=== PATIENT | female | born 1985 | race Asian ===

== ENCOUNTER 2023-05-27 13:05 | Outpatient (CLI) | payer OTHER, SELFPAY ==
--- NOTE | 2023-05-27 17:00 | W.PM.LAC.MC ---
Consult Note - Mom Date of Visit Date of visit: 05/27/23 method consultant: Ana Pineda Visit Code: Visit Patient's Information Phone number: [phone] : 1 Para: 1 Mother's Medical History: hypothyroidism Delivery Information Delivery type: Primary C/S; Labored Weeks Gestation: term Gestational Age: AGA Weight: 3.175 kg Baby's Information Baby's Age at Visit: 3 weeks Baby's Provider or Clinic: Dr. Engle Jaundice: No Reason for Consult Reason for Consult: pain with latching, concern for milk supply Past Experience Past Experience: No Current Frequency of Day Feedings: every 2 - 3 hours around the clock Both Breasts: No (mom hasn't been nursing this week) Pumping Pumping: Yes (with almost every feeding) Quantity Pumped: 1.5 - 2 oz total each time Supplementing EMB Supplement: Yes (baby is given 2.5 - 3 oz EBM/formula with every feeding) Formula Supplement: Yes Baby Elimination Number of Wet Diapers a Day: 6 - 8/24 hours Number of BM a Day: 2 - 3/day Breast/Nipple Condition Breast Information: WNL Onsite Pre-Feed weight: 4.062 kg Post-Feed weight: 4.088 kg Milk Transferred (mL): 26 Assessments/Interventions Assessments/Interventions: Met with mom and this now 3 week old- ex term AGA baby for consult. Mom received her care and delivered with Jenna Morrell in [place]. She denied any complications during (she does have hpothyroidism that is well controlled with medication). Labor complicated by FTP and she needed an unscheduled C/S. States she had a lot of trouble nursing in the hospital and over the past few weeks has developed more pain. This past week she's stopped nursing and concentrated on pumping b/c it didn't hurt as much. She's pumping almost every time baby eats and gets 1.5 - 2 oz total each time (she has a new Spectra and is using 28 mm flanges). Baby is taking 2.5 - 3 oz EBM/formula every 2 - 3 hours. Breasts WNL- symmetrical with rounded lower quadrants, intramammary distance < 1.5 inches. Nipples are everted and don't flatten or retract on compression. Although there are no milk blebs on the nipples currently, there are several small areas that are a little discolored and mom reports a hx of milk belbs that have healed. She also reports that along with pain at the initial latch, she has a stabbing and burning pain, sometimes during the nursing session and often between feedings. She states this pain is often worse at night. She denies any pain radiating to her back. She also denies any color change to the nipples or any sensitivity to temperature changes. The nipples aren't itchy, scaly, shiny, or cracked. Baby has gained 54 grams/day since his 2 week WCC on 05/19/23. POC deny any caput/cephalohematoma at delivery and state baby has equal ROM when turning his head and moving his extremities. Baby's palate is a little high. His upper and lower frenulum appear to be WNL. He doesn't have a very aggressive suck on a finger and is a little chompy but the tongue easily extends over the gum line. The tongue also has pretty good lateralization. No s/s thrush in his mouth and no diaper rash. Mom latched baby in the cross cradle hold on the left and she did a great job supporting her breast, supporting baby, and bringing him to her nipple to nose. She reported this latch was more comfortable than usual and thought the difference might be the supportive chair and extra pillows (she's nursing in bed at home). Baby needed some stimulation to stay actively nursing, but nursed for about 15 minutes. Mom removed him from the left side, roused him, and offered the right side. This side was a little more painful but after showing her and dad a way to pull baby's chin down a little, she reported increased comfort. Stated baby was a little more chompy on this side but it was more comfortable than usual. Baby nursed about 10 minutes with stimulation. When he was removed the nipple was more blanched on this side. Baby transferred 26 ml. Mom was measured and a smaller flange size suggested. Dad was also shown an exercise that might strengthen baby's suck. Plan: 1. Suggested mom start to practice nursing again, offering both sides at each feeding, keep baby awake and actively suckling. Since mom will be triple feeding, ok to keep the nursing sessions to about 10 minutes/side. Try nursing in a chair that provides good support and use pillows, footstool, etc. 2. Mom will continue to pump (suggested no less than 6 times/24 hours). Suggested she try the smaller flange size as it might be more comfortable and she may get more milk. Can also incorporate massage and hand expression. 3. Dad will supplement baby with 2 - 3 oz EBM/formula after nursing sessions. 4. Gave mom handout on different herbs that may boost her supply and encouraged dad to try the sucking exercise with daytime diaper changes. 5. Will f/u with mom by phone on 06/01 to see if the nipple and breast pain resolves with the more supportive position (and if she notices more frequent nipple blanching).
== END 2023-05-27 13:06 | disposition home or self-care (01) ==
PROVIDERS: PCP Family Medicine; Visit Provider Family Medicine
DX: Z39.1 Encounter for care and examination of lactating mother (principal)
CPT/HCPCS: G0463